=== PATIENT | female | born 1995 | race African-American/Black ===

== ENCOUNTER 2021-10-06 18:08 | Emergency (ER) | payer OTHER ==
[~2021-10-06] VITALS: Ht 157.5 cm; Wt 68.0 kg
[2021-10-06 18:19] VITALS: BP_SYST 112
== END 2021-10-06 18:31 | disposition left against medical advice (07) ==
LOC: SED 18:08
DX: R21 Rash and other nonspecific skin eruption (principal); Z53.21 Procedure and treatment not carried out due to patient leaving prior to being seen by health care provider